=== PATIENT | male | born 1930 | race Caucasian/White ===

== ENCOUNTER 2016-07-06 11:46 | Inpatient (IN) | payer OTHER ==
[~2016-07-06] VITALS: Ht 182.9 cm; Wt 102.1 kg
[2016-07-06 12:25] LABS: BASOPHIL % 0.2 % (0-2); PLATELET COUNT 378 x10^3mcL (130-400)
[2016-07-06 12:35] LABS: CALCIUM 8.8 mg/dL (8.5-10.1); CARBON DIOXIDE 31.4 mmol/L (21-32); CHLORIDE SERUM 103 mmol/L (98-107); CREATININE SERUM 1.1 mg/dL (0.7-1.3); GLUCOSE SERUM 169 mg/dL (74-106); POTASSIUM SERUM 4.6 mmol/L (3.5-5.1); SODIUM SERUM 139 mmol/L (136-145)
[2016-07-06 12:40] LABS: ALBUMIN 3.2 g/dL (3.4-5.0); ALKALINE PHOSPHATASE 74 U/L (46-116); ALT/SGPT 16 U/L (16-63); AST/SGOT 13 U/L (15-37); BILIRUBIN TOTAL 0.5 mg/dL (0.20-1.00); TOTAL PROTEIN, SERUM 6.8 g/dL (6.4-8.2)
[2016-07-06 12:51] LABS: RED CELL DISTRIBUTION WIDTH 19.6 % (11.5-14.5)
[2016-07-06] MEDS ORDERED: XARELTO10 M1 PO (14:45)
[2016-07-06] MEDS ORDERED: ENALAPRIL MALEA20 MG PO (14:45)
[2016-07-06] MEDS ORDERED: SIMVASTATIN20 M1 PO (14:45)
[2016-07-06] MEDS ORDERED: DILTIAZEM HCL180 MG PO (14:46)
[2016-07-06] MEDS ORDERED: APAP/HYDROCODON1 T11 PO (14:46)
[2016-07-06] MEDS ORDERED: CLOPIDOGREL75 M1 PO (14:46)
[2016-07-06] MEDS ORDERED: PENTOXIFYL XR400 M1 PO (14:47)
[2016-07-06 15:29] LABS: MAGNESIUM 1.9 mg/dL (1.8-2.4); PHOSPHOROUS 3.3 mg/dL (2.5-4.9)
[2016-07-06 15:41] LABS: CHOLESTEROL/HDL RATIO 1.9
[2016-07-06 15:42] VITALS: BP 101/68
[2016-07-06 15:49] LABS: FREE T4 0.88 ng/dL (0.76-1.46); T4(THYROXINE) 5.8 ug/dL (4.7-13.3)
[2016-07-06 15:56] LABS: T3 TOTAL 0.94 ng/mL
[2016-07-06 21:02] VITALS: BP 118/66
[2016-07-06 21:12] LABS: TOTAL IRON BINDING CAPACITY 357 ug/dL (250-450)
[2016-07-06 21:13] LABS: IRON 15 ug/dL (65-170)
[2016-07-06 21:21] LABS: RED BLOOD CELLS 4.16 M/mm3 (4.52-5.90)
[2016-07-06 23:30] LABS: UA SPECIFIC GRAVITY >=1.030 (1.005-1.035); microscopic required? YES; urine erythrocyte NEGATIVE (NEGATIVE)
[2016-07-07 05:00] VITALS: BP 129/66
[2016-07-07 06:31] LABS: CALCIUM 8.9 mg/dL (8.5-10.1); CHLORIDE SERUM 103 mmol/L (98-107); GLUCOSE SERUM 147 mg/dL (74-106); POTASSIUM SERUM 4.5 mmol/L (3.5-5.1); SODIUM SERUM 139 mmol/L (136-145)
[2016-07-07 06:40] LABS: BASOPHIL % 0 % (0-2); PLATELET COUNT 373 x10^3mcL (130-400)
[2016-07-07 09:10] VITALS: BP 101/61
[2016-07-07 12:48] VITALS: BP 121/53
[2016-07-07 17:09] VITALS: BP 108/66
[2016-07-07 21:09] VITALS: BP 95/66
[2016-07-08 05:56] VITALS: BP 114/65
[2016-07-08 06:30] LABS: CALCIUM 9.1 mg/dL (8.5-10.1); CARBON DIOXIDE 28.5 mmol/L (21-32); CHLORIDE SERUM 103 mmol/L (98-107); CREATININE SERUM 0.9 mg/dL (0.7-1.3); GLUCOSE SERUM 157 mg/dL (74-106); POTASSIUM SERUM 5.3 mmol/L (3.5-5.1); SODIUM SERUM 140 mmol/L (136-145)
[2016-07-08 07:31] LABS: PLATELET COUNT 432 x10^3mcL (130-400)
[2016-07-08 09:27] VITALS: BP 132/74
[2016-07-08 10:39] LABS: BAND NEUTROPHIL 2 % (0-10); BASOPHIL 0 % (0-2); MONOCYTE 2 % (0-7); SEGMENTED NEUTROPHILS 94 % (37-75); rbc morphology (normal/abnorm) ABNORMAL (NORMAL)
[2016-07-08 10:40] LABS: PLATELET MORPHOLOGY PLATELETS INCREASED; schistocyte (helmet cell) 1+; target cell (codocyte) 1+
[2016-07-08] MEDS ORDERED: LEVAQUIN500 M1 PO (10:59)
[2016-07-08] MEDS ORDERED: LAC PO (11:00)
[2016-07-08] MEDS ORDERED: FERROUS SULFAT325 M2 PO (11:02)
[2016-07-08] MEDS ORDERED: PHARMASSURE VI500 MG PO (11:03)
[2016-07-08] MEDS ORDERED: MEDDP PO (11:04)
[2016-07-08 12:16] LABS: CALCIUM 8.7 mg/dL (8.5-10.1); CARBON DIOXIDE 28.6 mmol/L (21-32); CHLORIDE SERUM 104 mmol/L (98-107); GLUCOSE SERUM 159 mg/dL (74-106); POTASSIUM SERUM 4.9 mmol/L (3.5-5.1); SODIUM SERUM 138 mmol/L (136-145)
[2016-07-08 13:08] VITALS: BP 132/74
[2016-07-08 14:04] VITALS: BP 108/57
== END 2016-07-08 15:49 | disposition home or self-care (01) | DRG 67 ==
LOC: ED 11:46 → DU 14:30
PROVIDERS: Emergency Medicine; Family Medicine; ADMIT Family Medicine
DX: I65.21 Occlusion and stenosis of right carotid artery (principal); N17.0 Acute kidney failure with tubular necrosis; J44.1 Chronic obstructive pulmonary disease with (acute) exacerbation; S20.211A Contusion of right front wall of thorax, initial encounter; S30.1XXA Contusion of abdominal wall, initial encounter; I48.2 Chronic atrial fibrillation; N28.89 Other specified disorders of kidney and ureter; R55 Syncope and collapse; I10 Essential (primary) hypertension; D50.9 Iron deficiency anemia, unspecified; F17.210 Nicotine dependence, cigarettes, uncomplicated; E66.9 Obesity, unspecified; Z68.30 Body mass index [BMI] 30.0-30.9, adult; Z99.81 Dependence on supplemental oxygen; Z79.01 Long term (current) use of anticoagulants; Z79.02 Long term (current) use of antithrombotics/antiplatelets; Z96.642 Presence of left artificial hip joint; Z96.653 Presence of artificial knee joint, bilateral; Z91.81 History of falling; W18.39XA Other fall on same level, initial encounter; Y92.019 Unspecified place in single-family (private) house as the place of occurrence of the external cause
CPT/HCPCS: 83880; 84439; 97110-GP; J1885; J1956; J2920; J2930; J3490; J7030; J7613; J7620; J7626; J7644; Q0092